=== PATIENT | male | born 1955 | race Caucasian/White ===

== ENCOUNTER → 2018-01-12 | Outpatient (CLI) | payer BC, OTHER ==
[~2018-01-12] MED LIST: ADULT LOW DOSE81 MG PO; AMBIEN 5 MG TABL5 M1 OR; FISHOIL PO; JANUVIA50 MG; LIPITOR10 MG; LISINOPRIL5 MG; METFORMIN HCL1000 M1; NIACIN ER1000 MG
== END ==
LOC: HYPER 06:55
DX: S80.11XA Contusion of right lower leg, initial encounter (principal); E11.628 Type 2 diabetes mellitus with other skin complications; M79.89 Other specified soft tissue disorders; Z87.891 Personal history of nicotine dependence; Z79.84 Long term (current) use of oral hypoglycemic drugs; X58.XXXA Exposure to other specified factors, initial encounter; Y93.89 Activity, other specified; Y92.89 Other specified places as the place of occurrence of the external cause; Y99.8 Other external cause status

== ENCOUNTER → 2018-01-19 | Outpatient (CLI) | payer BC, OTHER | LOC: HYPER 06:57 | DX: S80.11XD Contusion of right lower leg, subsequent encounter (principal); E11.9 Type 2 diabetes mellitus without complications; E78.5 Hyperlipidemia, unspecified; M79.89 Other specified soft tissue disorders; R51 Headache; Z79.84 Long term (current) use of oral hypoglycemic drugs; Z87.891 Personal history of nicotine dependence; X58.XXXD Exposure to other specified factors, subsequent encounter ==

== ENCOUNTER → 2018-02-01 | Outpatient (CLI) | payer BC, OTHER ==
--- NOTE | ~2018-02-01 | 2DMMODE ---
[facility] [place] [address] 2 D/M-MODE ECHOCARDIOGRAM Name: CRISTOFER العلي Ry Room #: REG [facility]#: [id number] Admission: 02/01/18 Attend Phys: Zach Fox MD Discharge: Date of : 51 Date of Service: 02/01/18 1136 Report #: [id number] THIS REPORT FOR: //name// APPROVED REPORT Study performed: 02/01/2018 10:16:46 EXAM: Comprehensive 2D, Doppler, and color-flow Echocardiogram Patient Location: Out-Patient Status: routine BSA: 2.17 HR: 52 bpm BP: 136/78 mmHg Rhythm: Bradycardia Other Information Study Quality: Good Indications Bradycardia, short of breath. 2D Dimensions RVDd: 38.77 mm IVSd: 10.86 (7-11mm) LVOT Diam: 22.61 (18-24mm) LVDd: 46.93 mm PWd: 10.91 (7-11mm) Ascending Ao: 37.36 (22-36mm) LVDs: 29.27 (25-40mm) Aortic Root: 33.73 mm Volumes Left Atrial Volume (Systole) Single Plane 4CH: 47.98 mL Single Plane 2CH: 54.48 mL LA ESV Index: 26.00 mL/m2 Aortic Valve AoV Peak Wilfredo.: 1.73 m/s AO Peak Gr.: 11.99 mmHg LVOT Max P.07 mmHg LVOT Max V: 1.66 m/s JÚNIOR Vmax: 3.86 cm2 Mitral Valve E/A Ratio: 1.5 MV Decel. Time: 234.28 ms MV E Max Wilfredo.: 1.12 m/s [facility] [address] [place] [address] 2 D/M-MODE ECHOCARDIOGRAM Name: CHANA العليCANDI Raza Room #: [facility]#: [id number] Admission: 02/01/18 Attend Phys: Zach Fox MD Discharge: Date of : 51 Date of Service: 02/01/18 1136 Report #: [id number] MV A Wilfredo.: 0.73 m/s MV PHT: 67.94 ms IVRT: 87.66 ms Pulmonary Valve PV Peak Wilfredo.: 1.55 m/s PV Peak Gr.: 9.63 mmHg Pulmonary Vein P Vein S: 0.69 m/s P Vein A: 0.31 m/s P Vein D: 0.65 m/s P Vein A Dur.: 124.6 msec P Vein S/D Ratio: 1.06 Tricuspid Valve TR Peak Wilfredo.: 2.49 m/s RAP Estimate: 5.00 mmHg TR Peak Gr.: 24.77 mmHg PA Pressure: 30.00 mmHg Left Ventricle The left ventricle is normal size. There is normal LV segmental wall motion. There is normal left ventricular wall thickness. Left ventricular systolic function is normal. LVEF is 60-65%. Moderate diastolic dysfunction is present (pseudonormal filling). Right Ventricle The right ventricle is normal size. The right ventricular systolic function is normal. Atria The left atrium size is normal. The right atrium size is normal. Aortic Valve The aortic valve is normal in structure. Trace aortic regurgitation. There is no aortic valvular stenosis. Mitral Valve The mitral valve is normal in structure. Trace to mild mitral regurgitation. Tricuspid Valve The tricuspid valve is normal in structure. Trace tricuspid regurgitation. Estimated PAP is 30-35mmHg. Pulmonic Valve The pulmonary valve is normal in structure. Trace pulmonic regurgitation. [facility] [address] [place] [address] 2 D/M-MODE ECHOCARDIOGRAM Name: CRISTOFER العلي Room #: REG [facility]#: [id number] Admission: 02/01/18 Attend Phys: Zach Fox MD Discharge: Date of : 51 Date of Service: 02/01/18 1136 Report #: [id number] Great Vessels The aortic root is normal in size. The ascending aorta is normal in size. IVC is normal in size and collapses >50% with inspiration. Pericardium There is no pericardial effusion. <Conclusion> The left ventricle is normal size. There is normal left ventricular wall thickness. Left ventricular systolic function is normal. Moderate diastolic dysfunction is present (pseudonormal filling). The right ventricle is normal size. The left atrium size is normal. Trace aortic regurgitation. Trace to mild mitral regurgitation. Trace tricuspid regurgitation. Estimated PAP is 30-35mmHg. <ELECTRONICALLY SIGNED> By: Zach Fox MD 02/01/18 1136 1136 1136 Zach Fox MD /INF
--- NOTE | ~2018-02-01 | EXE ---
[facility] [employer] [place] [address] STRESS ECHOCARDIOGRAM Name: CRISTOFER العلي Room #: REG [facility]#: [id number] Admission: 02/01/18 Attend Phys: Zach Fox MD Discharge: Date of : 51 Date of Service: 02/01/18 1429 Report #: [id number] THIS REPORT FOR: //name// APPROVED REPORT Study performed: 02/01/2018 10:42:09 Exam: Stress Echocardiogram Indication: Bradycardia Patient Location: Out-Patient Stress Nurse: Ana Luisa Polanco RN Status: routine Ht: 5 ft 11 in HR: 55 bpm BP: 136/78 mmHg Rhythm: NSR Medical History Medications: Listed on worksheet Allergies: Niacin Cardiac Risk Factors: Hyperlipidemia, DM Procedure The patient underwent an Exercise Stress Test using the Jesse Protocol. Blood pressure, heart rate, and EKG were monitored. An Echocardiogram was performed by surveillance camera technician in four stages in quad fashion. At peak stress, four selected images were obtained and placed side by side with resting images for comparison. Stress Test Details Stress Test: Exercise stress testing was performed using a Jesse protocol. HR Resting HR: 55 bpm Max Heart Rate (APMHR): 156 bpm Max HR Achieved: 157 bpm Target HR (85% APMHR): 132 bpm % of APMHR: 100 Recovery HR: 72 bpm HR response to stress: Normal HR response to stress BP Resting BP: 136/78 mmHg Max BP: 208/80 mmHg Recovery BP: 150/78 mmHg ECG Resting ECG: Sinus Rhythm [facility] [address] [address] STRESS ECHOCARDIOGRAM Name: CRISTOFER العلي Ry Room #: REG [facility]#: [id number] Admission: 02/01/18 Attend Phys: Zach Fox MD Discharge: Date of : 51 Date of Service: 02/01/18 1429 Report #: [id number] Stress ECG: Sinus Rhythm, with ST-T abnormalities ST Change: Ischemic Maximum ST Deviation: 1.5 mm Clinical Reason for Termination: Completed protocol, moderate fatigue Exercise duration: 8 min sec Highest Stage Achieved: Stage 3: 3.4 mph at 14% grade. Exercise capacity: 10.10 METs Pre-Stress Echo The resting Echocardiogram showed normal left ventricular contractility with an estimated Ejection Fraction of about 60-65%. No significant valvular abnormalities noted. Post-Stress Echo The stress Echocardiogram showed normal left ventricular contractility with an estimated Ejection Fraction of about >70%. Borderline hypokinesis of the inferior segment. Clinical No chest pain with exertion. Conclusion Clinical Response: Equivocal Exercise Capacity: Average Stress ECG Response: Ischemic Stress Echo Images: Equivocal The patient developed ST segment depression with exercise. The echocardiogram reveals possible inferior wall hypokinesis during maximal heart rate. Will proceed with a nuclear stress test to rule out ischemia. Other Information Study Quality: Adequate <Conclusion> The patient developed ST segment depression with exercise. The echocardiogram reveals possible inferior wall hypokinesis during maximal heart rate. Will proceed with a nuclear stress test to rule out ischemia. <ELECTRONICALLY SIGNED> By: Zach Fox MD 02/01/18 1429 1429 1429 Zach Fox MD /INF
== END ==
LOC: CV 09:17
DX: R00.1 Bradycardia, unspecified (principal); R42 Dizziness and giddiness; E11.9 Type 2 diabetes mellitus without complications; R68.89 Other general symptoms and signs

== ENCOUNTER → 2018-02-02 | Outpatient (CLI) | payer BC, OTHER | LOC: HYPER 06:50 | DX: S80.11XD Contusion of right lower leg, subsequent encounter (principal); E11.9 Type 2 diabetes mellitus without complications; E78.5 Hyperlipidemia, unspecified; M79.89 Other specified soft tissue disorders; R51 Headache; R00.1 Bradycardia, unspecified; Z79.84 Long term (current) use of oral hypoglycemic drugs; Z87.891 Personal history of nicotine dependence; X58.XXXD Exposure to other specified factors, subsequent encounter ==

== ENCOUNTER → 2018-02-22 | Outpatient (CLI) | payer BC, OTHER | LOC: NUC 02-20 07:41 | DX: R00.1 Bradycardia, unspecified (principal); R42 Dizziness and giddiness; E78.5 Hyperlipidemia, unspecified; E11.9 Type 2 diabetes mellitus without complications; Z87.891 Personal history of nicotine dependence ==

== ENCOUNTER → 2018-10-05 | Outpatient (CLI) | payer OTHER | LOC: CAT 10:02 | DX: I25.10 Atherosclerotic heart disease of native coronary artery without angina pectoris (principal); E78.00 Pure hypercholesterolemia, unspecified; Z13.6 Encounter for screening for cardiovascular disorders ==